=== PATIENT | female | born 1995 | race African-American/Black ===

== ENCOUNTER 2021-07-29 13:56 | Emergency (ER) | payer OTHER ==
[~2021-07-29] VITALS: Ht 165.1 cm; Wt 109.1 kg
[~2021-07-29 13:56] MED LIST: FERR SULFATE325 MG PO; IBUPROFEN600 MG PO; NYSTATIN100000 M4 TOP; PRE-NATAL PO; TRIAMCINOLON0.11 EX
[2021-07-29 15:15] LABS: IMMATURE GRANULOCYTES 0.1 % (0.0-5.0); MEAN CELL VOLUME 87.4 fL CALC (80.0-100.0); MEAN CORPUSCULAR HGB 27.6 pG CALC (26.0-32.0); MEAN CORPUSCULAR HGB CONC 31.6 g/dL CAL (32.0-36.0); NEUT# 3.7 thou/uL (2.00-7.15); RED BLOOD COUNT 4.67 mill/uL (4.20-5.60); RED CELL DISTRI WIDTH 15.1 % (11.5-15.5)
[2021-07-29 15:17] LABS: HEMATOCRIT 40.8 % (37.0-47.0); HEMOGLOBIN 12.9 g/dl (12.0-16.0)
[2021-07-29 15:21] LABS: URINE BILIRUBIN - DIPSTICK NEGATIVE (NEGATIVE); URINE BLOOD DIPSTICK LARGE (NEGATIVE); URINE COLOR YELLOW; URINE GLUCOSE - DIPSTICK NEGATIVE (NEGATIVE); URINE KETONE NEGATIVE (NEGATIVE); URINE LEUK ESTERASE NEGATIVE (NEGATIVE); URINE PROTEIN - DIPSTICK NEGATIVE (NEG-TRACE); URINE UROBILINOGEN - DIPSTICK 0.2 E.U./dL (0.2)
[2021-07-29 15:25] LABS: URINE NITRITE - DIPSTICK NEGATIVE (Negative)
[2021-07-29 15:28] LABS: URINE RBC 0-2 RBC/hpf (0-5); URINE SQUAMOUS EPITHELIAL CELL MANY EPI/hpf (0-FEW)
[2021-07-29 15:34] LABS: ALBUMIN 3.8 g/dL (3.2-5.0); BUN 12 mg/dL (7-17); BUN/CREATININE RATIO 20 (12-20 (CALC)); CHLORIDE 105 mmol/l (95-108); CREATININE 0.6 mg/dL (0.5-1.0); GFR > 60 ML/MIN (>=60 (CALC)); GFR FOR AFR.AMER. > 60 ML/MIN (>=60 (CALC)); SGOT/AST 23 u/l (14-36); SODIUM 138 mmol/l (137-146); TOTAL PROTEIN 7.3 g/dL (6.3-8.2)
[2021-07-29 15:37] LABS: ALKALINE PHOSPHATASE 58 u/l (38-126); ANION GAP 12 (6-22 (CALC)); BILIRUBIN, TOTAL 0.3 mg/dL (0.0-1.4); CARBON DIOXIDE 25 mmol/l (22-30)
[2021-07-29 16:15] LABS: BETA-HCG, QUANT(RESULT NUMBER) 20477 mIU/mL
[2021-07-29 18:44] VITALS: BP 138/69
== END 2021-07-29 18:47 | disposition home or self-care (01) ==
LOC: ED 13:56
DX: O20.0 Threatened abortion (principal); O16.1 Unspecified maternal hypertension, first trimester; Z3A.01 Less than 8 weeks gestation of pregnancy

== ENCOUNTER 2024-10-07 16:09 | Emergency (ER) | payer SELFPAY ==
[~2024-10-07] VITALS: Ht 165.1 cm; Wt 115.0 kg
[2024-10-07] MEDS ORDERED: KETOROLAC TROMETHAMINE 30 MG/ML SDV IM ONE (16:25)
[2024-10-07] MEDS ORDERED: PENicillin V POTASSIUM 500 MG/TAB PO ONE (16:25)
[2024-10-07] MEDS ORDERED: PENICILLN VK500 MG PO (16:27)
[2024-10-07] MEDS ORDERED: NAPROXEN500 MG PO (16:27)
[2024-10-07] MEDS ORDERED: TRAMADOL HYDROC50 M1 PO (16:27)
[2024-10-07 17:01] VITALS: BP 163/98
== END 2024-10-07 17:05 | disposition home or self-care (01) | DRG 159 ==
LOC: ED 16:09
DX: K04.7 Periapical abscess without sinus (principal); K02.9 Dental caries, unspecified; S02.5XXA Fracture of tooth (traumatic), initial encounter for closed fracture; I10 Essential (primary) hypertension; X58.XXXA Exposure to other specified factors, initial encounter